=== PATIENT | female | born 1975 ===

== ENCOUNTER 2020-02-26 20:16 | Emergency (ER) | payer MEDICAID, OTHER ==
[~2020-02-26] VITALS: Ht 157.5 cm; Wt 92.1 kg
[2020-02-26 20:30] VITALS: BP 122/93
[2020-02-26] MEDS ORDERED: NORCO 5-325 TA1 EAC1 ORAL (20:42)
[2020-02-26] MEDS ORDERED: HYDROcodone/Acetamin 10/325 tab ORAL ONE (20:45)
--- NOTE | 2020-02-26 20:54 | Emergency Room Report ---
History of Present Illness General Chief Complaint: Pain Source: Patient Present Illness HPI Patient presents with complaints of discomfort to her known left cyst on her breast reports that she has 2 on the left side and 2 on the right side The pain has been improving and worsening over the past several months Patient reports that the Motrin that she takes gives her Gastritis Denies any vomiting denies any fevers denies any sensation of increased swelling or erythema over the left breast area Patient has had fairly extensive work-up at [facility] Allergies: Coded Allergies: No Known Allergies (Unverified , 02/26/20) Patient History Past Medical History: see triage record Reviewed Nursing Documentation: PMH: Agreed; PSxH: Agreed Review of Systems All Other Systems: negative except mentioned in HPI Physical Exam Vital Signs Date Time Temp Pulse Resp B/P (MAP) Pulse Ox O2 Delivery O2 Flow Rate FiO2 02/26/20 20:22 99.0 91 17 122/93 (103) 98 Room Air Sp02 EP Interpretation: reviewed, normal General Appearance: well appearing, no apparent distress Head: normocephalic, atraumatic Eyes: bilateral eye PERRL, bilateral eye EOMI ENT: hearing grossly normal, EOM grossly intact Neck: supple Respiratory: lungs clear, no respiratory distress, no retraction Cardiovascular #1: regular rate, rhythm Gastrointestinal: non tender, soft Genitourinary: no CVA tenderness Musculoskeletal: back normal Neurologic: alert, oriented x3 Psychiatric: normal inspection Skin: other - Left breast examination with female nurse at bedside, I cannot palpate any obvious masses patient however has discomfort over the lateral aspect where she reports having the cyst no obvious ecchymosis no dimpling of the areaola Lymphatic: no adenopathy Medical Decision Making Diagnostic Impression: Primary Impression: breast pain ER Course Patient presents with what she reports is worsening discomfort with the cyst on her left breast Patient has known cyst on the left side with 2 separate cyst reports that her pain has been intermittent over the past several months now she feels that the Motrin that she takes at home is giving her gastritis and asking for different pain relief Patient has fairly extensive imaging and work-up at [facility] Given the examination I did not feel repeat imaging at this time would provide much emergent information Patient is aware that mammogram and other studies are required as an outpatient process And at this time is stable for close outpatient follow-up Last Vital Signs Date Time Temp Pulse Resp B/P (MAP) Pulse Ox O2 Delivery O2 Flow Rate FiO2 02/26/20 20:22 99.0 91 17 122/93 (103) 98 Room Air Status: improved Disposition: HOME, SELF-CARE Condition: Improved Scripts Hydrocodone Bit/Acetaminophen 5-325* (NORCO 5-325 TABLET*) 1 Each Tablet 1 TAB ORAL Q6H PRN for FOR PAIN, #12 TAB 0 Refills Prov: Danish Espinal DO 02/26/20 Referrals: [facility] Felix De La Cruz. [facility] Patient Instructions: Breast Cyst Additional Instructions: Patient is provided with the discharge instructions notified to follow up with primary doctor in the next 2-3 days otherwise return to the er with any worsening symptoms. Please note that this report is being documented using [employer] technology. This can lead to erroneous entry secondary to incorrect interpretation by the dictating instrument. Danish Espinal DO February 26, 2020 20:54
[2020-02-26 21:10] VITALS: BP 119/90
== END 2020-02-26 21:15 | disposition home or self-care (01) ==
LOC: EMR 21:14
DX: N64.4 Mastodynia (principal); N60.02 Solitary cyst of left breast
CPT/HCPCS: 99282